=== PATIENT | male | born 1975 ===

== ENCOUNTER 2017-12-10 08:32 | Day surgery (SDC) | payer OTHER ==
[~2017-12-10] VITALS: Ht 190.5 cm; Wt 102.5 kg
[2017-12-10] VITALS (17 sets, daily range): BP systolic 110–138; BP diastolic 71–95
[~2017-12-10 08:32] MED LIST: Cefazolin 2GM/50ML dext iso,osmotic IVPB IV ONE; HYDR50CA PO; IBUP-1985 PO; OXCA600T PO; TRAM50TA2 PO; famotidine 20mg tablet PO ONE; ringers solution, lacted 1,000 ML IV SCH
[2017-12-10] MEDS ORDERED: LIDOcaine 1% (10mg/ml) 2ml vial ONE (08:50)
[2017-12-10] MEDS ORDERED: sevoflurane 250ml liquid IH ONE (11:02)
[2017-12-10] MEDS ORDERED: ROPIVAcaine 0.5% (5mg/ml) 30ml vial ONE ×2 (11:06→11:11)
[2017-12-10] MEDS ORDERED: epiNEPHrine 1 mg/ml 30ml MDV ONE (11:11)
[2017-12-10] MEDS ORDERED: LIDOcaine 2% (20mg/ml) 5ml vial ONE (11:12)
[2017-12-10] MEDS ORDERED: fentaNYL/PF 50MCG/1 ML 2ML syringe ONE (11:12)
[2017-12-10] MEDS ORDERED: propofol inj 20 ML IV ONE (11:12)
[2017-12-10] MEDS ORDERED: ondansetron/PF 4mg/2ml inj ONE (11:39)
[2017-12-10] MEDS ORDERED: ringers solution, lacted 1,000 ML IV SCH (11:59)
[2017-12-10] MEDS ORDERED: enalaprilat dihydrate 2.5mg/2ml vial IV PRN (12:00)
[2017-12-10] MEDS ORDERED: ondansetron/PF 4mg/2ml inj IV PRN ×2 (12:00→12:15)
[2017-12-10] MEDS ORDERED: morphine 4 MG/ML inj SYRINge IV PRN ×2 (12:00)
[2017-12-10] MEDS ORDERED: fentaNYL/PF 50MCG/1 ML 2ML syringe IV PRN ×2 (12:00)
[2017-12-10] MEDS ORDERED: hydrALAZINE 20mg/ml inj. IV PRN (12:00)
[2017-12-10] MEDS ORDERED: proCHLORperazine 10 MG/2 ml inj IV PRN (12:15)
[2017-12-10] MEDS ORDERED: scopolamine 1.5mg patch.TD72 TD ONE (12:15)
[2017-12-10] MEDS ORDERED: proMETHazine 25mg rectal suppository RC PRN (12:15)
[2017-12-10] MEDS ORDERED: dexamethasone sod phosphate 4mg/ml inj. ONE (12:57)
[2017-12-10] MEDS ORDERED: MIDAZolam 5mg/ml 2ml vial IV ONE (14:30)
== END 2017-12-10 16:00 ==
LOC: PAS 08:32 → EEVIPCON 10:30 → PAS 16:00
PROVIDERS: ATTEND Orthopaedic Surgery
DX: S43.431A Superior glenoid labrum lesion of right shoulder, initial encounter (principal); M75.111 Incomplete rotator cuff tear or rupture of right shoulder, not specified as traumatic; F31.9 Bipolar disorder, unspecified; G89.18 Other acute postprocedural pain; Z88.6 Allergy status to analgesic agent; Z88.5 Allergy status to narcotic agent; Z79.1 Long term (current) use of non-steroidal anti-inflammatories (NSAID); Z79.891 Long term (current) use of opiate analgesic; Z79.899 Other long term (current) drug therapy; Z98.890 Other specified postprocedural states; Z88.8 Allergy status to other drugs, medicaments and biological substances; X58.XXXA Exposure to other specified factors, initial encounter; Y93.89 Activity, other specified; Y92.89 Other specified places as the place of occurrence of the external cause; Y99.8 Other external cause status
CPT/HCPCS: 29807; 29827; 64450; A4565; A6258; A6449; C1713; J0171; J0690; J1100; J2001; J2250; J2405; J2704; J2795; J3010; J3490; J7030; J7120; A7000